=== PATIENT | male | born 1990 | race Caucasian/White ===

== ENCOUNTER 2020-08-02 21:53 | Emergency (ER) | payer OTHER ==
[~2020-08-02] VITALS: Ht 175.3 cm; Wt 72.1 kg
[2020-08-02 22:01] VITALS: BP 156/105; Ht 175.3 cm; Wt 72.1 kg
== END 2020-08-02 23:43 | disposition home or self-care (01) ==
LOC: ED 21:53
DX: L60.0 Ingrowing nail (principal)